=== PATIENT | female | born 1950 | race Caucasian/White ===

== ENCOUNTER 2020-12-31 22:44 | Inpatient (IN) ==
[2020-12-31] MEDS ORDERED: HEPARIN 1,000 UNIT/1 ML VIAL IV STA (23:19)
[2020-12-31] MEDS ORDERED: TICAGRELOR 90 MG TABLET PO STA (23:20)
[2020-12-31] MEDS ORDERED: LIDOCAINE 1% 20 ML VIAL ONE (23:29)
[2020-12-31] MEDS ORDERED: MIDAZOLAM 2 MG/2 ML VIAL ONE (23:41)
[2020-12-31] MEDS ORDERED: fentaNYL 100 MCG/2 ML VIAL ONE (23:41)
[2020-12-31 23:47] LABS: ABG Base Excess -15.9 MMOL/L (-2.5-2.5); ABG PCO2 21.9 MM HG (35-48); ABG PH 7.267 (7.35-7.45); ABG PO2 74.5 MM HG (80-95); ABG TCO2 9.6 MMOL/L (23-27)
[2020-12-31 23:55] LABS: INR 1.1; PT Patient Result 11.5 SECS (9.8-11.9); Partial Thromboplastin Time 20.8 SECS (23.9-33.8)
[2021-01-01 00:04] LABS: Alanine Aminotransferase 18 U/L (13-56); Albumin 3.5 G/DL (3.4-5.0); Alkaline Phosphatase 127 U/L (45-117); Aspartate Amino Transferase 35 U/L (0-37); Blood Urea Nitrogen 12 MG/DL (7-18); Calcium 8.6 MG/DL (8.5-10.1); Carbon Dioxide 11 MMOL/L (21-32); Estimated Glom Filtration Rate 65 ML/MIN; Osmolality,Calculated 294.2 MOS/KG (273-304); Potassium 4.2 MMOL/L (3.5-5.1); Sodium 134 MMOL/L (136-145); Total Protein 6.8 G/DL (6.4-8.2)
[2021-01-01 00:05] LABS: Glucose 591 MG/DL (74-106)
[2021-01-01] MEDS ORDERED: TIROFIBAN 5,000 MCG/100 ML PREMIX IV ONE (00:05)
[2021-01-01] MEDS ORDERED: HEPARIN 5,000 UNIT/1 ML VIAL ONE ×2 (00:06→00:19)
[2021-01-01 00:09] LABS: Basophils % 0.3 % (0.0-0.8); Eosinophils % 0.1 % (0.00-10.9); Hematocrit 27.4 VOL% (35.7-47.0); Hemoglobin 6.6 GM/DL (12.0-16.0); Immature Granulocytes % 0.8 %; Lymphocytes % 7.7 % (21.3-54.2); Mean Corpuscular HGB Conc 24.1 GM/DL (32-36); Mean Corpuscular Volume 60.8 FL (87-102); Mean Platelet Volume 9.9 FL (9.6-12.0); Monocytes % 3.7 % (1.7-12.7); NRBC # 0.03 10*3/uL; Neutrophils % 87.4 % (38.7-73.9); Platelet Count 414 T/CUMM (130-400); Red Blood Count 4.51 MC/CUMM (3.8-5.5); Red Cell Distribution Width 23.2 % (9.3-17.3); White Blood Count 12.9 T/CUMM (4-12)
[2021-01-01] MEDS ORDERED: DOBUTamine 500 MG/250 ML PREMIX IV ONE (00:42)
[2021-01-01 00:52] LABS: Anisocytosis 1+; Ovalocytes 1+; Poikilocytosis 1+
[2021-01-01 00:53] LABS: Macrocytosis 1+; Microcytosis Slight; Platelet Estimate Increased
[2021-01-01] MEDS ORDERED: ALTEPLASE 100 MG/100 ML BOTTLE ONE (01:00)
[2021-01-01] MEDS ORDERED: NOREPINEPHRINE 4 MG/4 ML VIAL IV ONE (01:06)
[2021-01-01] MEDS ORDERED: ETOMIDATE 20 MG/10 ML VIAL IV ONE (01:07)
[2021-01-01] MEDS ORDERED: ROCURONIUM 100 MG/10 ML VIAL IV ONE (01:07)
[2021-01-01] MEDS ORDERED: MAGNESIUM SULF RIDER 4 GM in PREMIX 1 EACH IV PRN (01:20)
[2021-01-01] MEDS ORDERED: DEXTROSE 50% 25 GM/50 ML VIAL IV PRN (01:20)
[2021-01-01] MEDS ORDERED: POTASSIUM CHLORIDE RIDER 10 MEQ in PREMIX 1 EACH IV PRN (01:20)
[2021-01-01] MEDS ORDERED: GLUCAGON 1 MG VIAL IM PRN (01:20)
[2021-01-01] MEDS ORDERED: ONDANSETRON 4 MG/2 ML VIAL IV PRN (01:20)
[2021-01-01] MEDS ORDERED: MAGNESIUM SULF RIDER 2 GM in PREMIX 1 EACH IV PRN (01:20)
[2021-01-01] MEDS ORDERED: SODIUM CHLORIDE 0.9% 1,000 ML IV SCH (01:30)
[2021-01-01] MEDS ORDERED: PANTOPRAZOLE 40 MG VIAL IV ONE (01:37)
[2021-01-01 01:54] LABS: Bilirubin,Urine Negative (Negative); Blood, Urine Negative (Negative); Glucose,Urine (UA) >=500 mg/dL (Negative); Ketones,Urine 20 mg/dL (Negative); Mucus,Urine Occasional /LPF (Occasional); Nitrite,Urine Negative (Negative); Protein,Urine Negative; RBC,Urine <1 /HPF (0-4); Urine Appearance CLEAR (Clear); Urine Color Straw (Yellow); Urine Urobilinogen < 2.0 EU/DL (0.2-1.0)
[2021-01-01] MEDS ORDERED: NOREPINEPHRINE 8 MG in SODIUM CHLORIDE 0.9% 242 ML IV PRN (02:00)
[2021-01-01 02:02] LABS: ABG Base Excess -20.1 MMOL/L (-2.5-2.5); ABG HCO3 9.1 MMOL/L (20-26); ABG Oxygen Saturation 87.2 % (95-100); ABG PCO2 33.4 MM HG (35-48); ABG PO2 82.9 MM HG (80-95); ABG TCO2 9.1 MMOL/L (23-27)
[2021-01-01] MEDS ORDERED: DOBUTamine 500 MG/250 ML PREMIX IV PRN (02:08)
[2021-01-01] MEDS ORDERED: VASOPRESSIN 100 UNITS in SODIUM CHLORIDE 0.9% 95 ML IV PRN (02:26)
[2021-01-01] MEDS ORDERED: SODIUM BICARBONATE 50 MEQ/50 ML VIAL IV ONE ×3 (02:29)
[2021-01-01 03:06] LABS: CKMB % 4.7 %
[2021-01-01 03:09] LABS: Troponin I 24.3 NG/ML (0.00-0.045)
[2021-01-01 03:31] LABS: Barbiturates Screen,Urine Negative (Negative); Benzodiazepines Screen,Urine Negative (Negative); Cannabinoid Screen,Urine Negative (Negative); Opiate Screen,Urine Negative (Negative); Phencyclidine Screen,Urine Negative (Negative)
[2021-01-01 04:11] VITALS: BP 62/36
[2021-01-01] MEDS ORDERED: ENOXAPARIN 100 MG/ML SYRINGE SUBCUT SCH (08:00)
[2021-01-01] MEDS ORDERED: PANTOPRAZOLE 40 MG TABLET PO SCH (09:00)
[2021-01-01] MEDS ORDERED: TICAGRELOR 90 MG TABLET PO SCH (09:00)
[2021-01-01] MEDS ORDERED: PANTOPRAZOLE 40 MG VIAL IV SCH (09:00)
[2021-01-01] MEDS ORDERED: ASPIRIN CHEW 81 MG TABLET PO SCH (09:00)
== END 2021-01-01 02:55 | disposition expired ==
LOC: N.ED 22:44 → N.CC 23:44 → N.EDINP 01-01 00:12 → N.CC 01-01 01:11
PROVIDERS: ADMIT Internal Medicine Cardiovascular Disease; ATTEND Internal Medicine Cardiovascular Disease